=== PATIENT | female | born 1970 | race Caucasian/White ===

== ENCOUNTER 2019-03-05 15:50 | Emergency (ER) | payer OTHER ==
[~2019-03-05] VITALS: Ht 165.1 cm; Wt 54.9 kg
== END 2019-03-05 21:37 | disposition home or self-care (01) ==
LOC: ER 15:50
DX: K58.9 Irritable bowel syndrome, unspecified (principal)

== ENCOUNTER 2022-07-07 21:35 | Emergency (ER) | payer OTHER ==
[~2022-07-07] VITALS: Ht 165.1 cm; Wt 54.0 kg
== END 2022-07-08 01:28 | disposition home or self-care (01) ==
LOC: ER 21:35
DX: S80.12XA Contusion of left lower leg, initial encounter (principal); S89.92XA Unspecified injury of left lower leg, initial encounter; W19.XXXA Unspecified fall, initial encounter; Y93.9 Activity, unspecified; Y92.9 Unspecified place or not applicable; Y99.9 Unspecified external cause status; Z88.1 Allergy status to other antibiotic agents

== ENCOUNTER 2022-08-13 20:13 | Emergency (ER) | payer OTHER ==
[~2022-08-13] VITALS: Ht 165.1 cm; Wt 54.4 kg
== END 2022-08-13 22:46 | disposition home or self-care (01) ==
LOC: ER 20:13
DX: S91.312A Laceration without foreign body, left foot, initial encounter (principal); X58.XXXA Exposure to other specified factors, initial encounter; Y93.9 Activity, unspecified; Y92.9 Unspecified place or not applicable; Y99.9 Unspecified external cause status; Z88.1 Allergy status to other antibiotic agents

== ENCOUNTER 2023-09-04 15:07 | Outpatient (CLI) | payer OTHER | END 2023-09-04 15:13 | disposition home or self-care (01) | LOC: RAD 15:07 | PROVIDERS: ATTEND Orthopaedic Surgery Orthopaedic Surgery of the Spine | DX: Q67.5 Congenital deformity of spine (principal) ==

== ENCOUNTER 2024-10-29 09:25 | Outpatient (CLI) | payer OTHER ==
[2024-10-29 10:18] LABS: URINE APPEARANCE Clear; URINE BILIRRUBIN Negative (NEGATIVE); URINE BLOOD Trace; URINE COLOR Yellow; URINE GLUCOSE Negative (NEGATIVE); URINE KETONE Negative (NEGATIVE); URINE LEUKOCYTE Negative; URINE NITRATE Negative; URINE PROTEIN Negative (NEGATIVE); URINE UROBILINOGEN 0.2 E.U./dl
[2024-10-29 10:21] LABS: URINE BACTERIA 9.7 uL (0.0-1933); URINE EPITHELIAL CELLS 2.6 uL (0.0-38.8); URINE RBC 4.5 uL (0.0-20.8)
[2024-10-29 10:24] LABS: HEMATOCRIT 40.1 % (36.0-45.00); HEMOGLOBIN 13.5 g/dL (12.0-15.00); MEAN CELL VOLUME 92.9 fL (80.00-100.00); MEAN CORPUSCULAR HEMOGLOBIN 31.3 pg (27.00-32.0); MEAN CORPUSCULAR HGB CONC 33.7 g/dl (32.0-36.0); PLATELET COUNT 213 K/uL (150-450); RED BLOOD COUNT 4.31 M/uL (4.00-6.00); RED CELL DISTRIBUTION WIDTH 12.7 % (11.5-14.5); URINE WBC 0.6 uL (0.0-23.2)
[2024-10-29 11:11] LABS: ALBUMIN 3.9 gm/dL (3.4-5.0); BILIRUBIN TOTAL 0.44 mg/dL (0.3-1.2); CALCIUM 9.4 mg/dL (8.5-10.1); CHOL HDL RATIO 3.3 (0-5.0); CREATININE SERUM 0.6 mg/dL (0.55-1.02); GFR 104.57; GLOBULINA 3.3 G/DL (2.4-3.5); POTASSIUM 4.48 mEq/L (3.5-5.1); TOTAL PROTEIN 7.2 gm/dL (6.4-8.2)
[2024-10-29 17:32] LABS: TSH 0.992 uIU/mL (0.358-3.74)
== END 2024-10-29 09:34 | disposition home or self-care (01) ==
LOC: LAB 09:25
PROVIDERS: ATTEND Obstetrics & Gynecology
DX: R73.01 Impaired fasting glucose (principal); E78.00 Pure hypercholesterolemia, unspecified; D50.8 Other iron deficiency anemias; E03.8 Other specified hypothyroidism; E55.9 Vitamin D deficiency, unspecified; R80.9 Proteinuria, unspecified; Z12.11 Encounter for screening for malignant neoplasm of colon